=== PATIENT | male | born 1945 | race Caucasian/White ===

== ENCOUNTER 2017-09-24 18:14 | Emergency (ER) | payer OTHER, MEDICARE ==
[2017-09-24 18:41] VITALS: BP 152/74; PULSE 71; RESP 16; TEMP 98
--- NOTE | 2017-09-24 19:37 | XR ---
EXAMINATION TYPE: XR hand complete RT DATE OF EXAM: 09/24/2017 COMPARISON: NONE HISTORY: Crush injury. Pain. TECHNIQUE: 3 views FINDINGS: I see no fracture nor dislocation. Metacarpals are intact. There are no erosions. The secon d and third fingers are intact. IMPRESSION: No acute abnormality of the right hand. No fracture seen.
--- NOTE | 2017-09-24 21:39 | ED ---
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 Patient states this happened about 5:30 PM. Patient denies any other injuries. He is having pain and swelling to both fingers which is exacerbated by movement and relieved by rest. Patient denies any paresthesias. No proximal pain. No radiation. No chest pain or shortness of breath. - Related Data Allergies Allergy/AdvReac Type Severity Reaction Status Date / Time No Known Allergies Allergy Verified 09/24/17 18:41 Review of Systems ROS Statement: Those systems with pertinent positive or pertinent negative responses have been documented in the HPI. ROS Other: All systems not noted in ROS Statement are negative. Past Medical History Past Medical History: Coronary Artery Disease (CAD), Chest Pain / Angina, Diabetes Mellitus, Hyperlipidemia, Hypertension, Myocardial Infarction ([place]) History of Any Multi-Drug Resistant Organisms: None Reported Past Surgical History: Heart Catheterization With Stent Past Psychological History: No Psychological Hx Reported Smoking Status: Former smoker Past Alcohol Use History: Occasional Past Drug Use History: None Reported General Exam - General Exam Comments Initial Comments: Well-developed, well-nourished 72-year-old male in no distress Limitations: no limitations General appearance: alert, in no apparent distress Head exam: Present: atraumatic, normocephalic, normal inspection Eye exam: Present: normal appearance, EOMI Neck exam: Present: normal inspection Respiratory exam: Present: normal lung sounds bilaterally. Absent: respiratory distress, wheezes, rales, rhonchi, stridor Cardiovascular Exam: Present: regular rate, normal rhythm, normal heart sounds. Absent: systolic murmur, diastolic murmur, rubs, gallop, clicks Extremities exam: Present: tenderness, normal capillary refill, other (Patient does have circumferential swelling around both fingers with regards to the index and middle fingers of the right hand. Capillary refill is less than 2 seconds. Distal sensation intact. No crepitus or joint deformity. Range of motion is limited secondary to swelling). Absent: normal inspection, full ROM Course Vital Signs 09/24/17 18:33 Temperature 98.0 F Pulse Rate 71 Respiratory 16 Rate Blood Pressure 152/74 O2 Sat by Pulse 98 Oximetry Medical Decision Making - Medical Decision Making Plain film x-rays read by radiology reveal no evidence of acute fracture. I did review the films. Findings reviewed with the patient. Return and follow- up parameters discussed. Work restrictions discussed. Disposition Clinical Impression: Contusion of right index finger without damage to nail, initial encounter, Contusion of right middle finger without damage to nail, initial encounter Disposition: HOME SELF-CARE Condition: Good Instructions: Contusion in Adults (ED) Additional Instructions: Follow-up with [facility] for recheck. Call in the morning for an appointment time. One-handed duty until follow-up and clearance. Use over- the-counter acetaminophen for pain control. 500 mg every 6 hours. Apply ice 20 minutes on and off to the affected area. Referrals: Murali Tovar DO [STAFF PHYSICIAN] - 1-2 days Time of Disposition: 21:21
== END 2017-09-24 21:52 | disposition home or self-care (01) ==
LOC: EC 18:14
DX: S60.021A Contusion of right index finger without damage to nail, initial encounter (principal); S60.031A Contusion of right middle finger without damage to nail, initial encounter; Z87.891 Personal history of nicotine dependence; W23.0XXA Caught, crushed, jammed, or pinched between moving objects, initial encounter; Y99.0 Civilian activity done for income or pay
CPT/HCPCS: 99283

== ENCOUNTER → 2017-10-01 | Outpatient (CLI) | payer OTHER ==
--- NOTE | 2017-10-01 15:55 | XR ---
EXAMINATION TYPE: XR finger RT DATE OF EXAM: 10/01/2017 COMPARISON: Right hand x-ray September 24, 2017. HISTORY: Crushing injury one week ago with persistent pain. TECHNIQUE: 3 views of right second digit are obtained. FINDINGS: No acute fracture or dislocation is clearly identified. No suspicious new periosteal reacti on is present. Joint spaces show mild narrowing at the DIP joint. Overlying soft tissue is unremarkab le. IMPRESSION: No acute or healing subacute fracture or dislocation in second digit of right hand.
== END | disposition home or self-care (01) ==
LOC: RADXRMAIN 15:15
PROVIDERS: ATTEND Emergency Medicine
DX: S67 Crushing injury of wrist, hand and fingers (principal)